=== PATIENT | female | born 1960 | race Caucasian/White ===

== ENCOUNTER 2016-12-03 20:25 | Observation (INO) | payer BC ==
[~2016-12-03] VITALS: Ht 160 cm; Wt 52.3 kg
--- NOTE | ~2016-12-03 | ER ---
ADMIT: 12/03/2016 RM/LOC: ER [facility] MR#: [id number] [id number] [place], [place] [id number] MELISSA WEAVER [address] [place] [address] Emergency Room Report SEX: F AGE: 56 : 1960 DATE: 12/03/2016 HISTORY OF PRESENT ILLNESS: A 56-year-old female with sudden onset of left lateral chest pain, sharply localized to approximate 3 cm diameter lateral aspect of the chest. She was giving her cat a bath when it suddenly occurred, worsened with movement of her torso, deep coughs, and deep breaths. Described it as sharp and stabbing. She has no medical history. Takes no medications. She does not smoke or drink. PHYSICAL EXAMINATION: There is point tenderness in the left lateral aspect of her chest wall. Pain was worsened also by taking a deep breath, having her cough, or if she lifts her torso. She is given Toradol with relief of the pain. Chest x-ray was unremarkable. 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 Daughter then said no, I know it is worse. She is just not telling you. The patient says well maybe it was a tightness now in her chest. There had obviously been some talking amongst the family members, although the patient was in the Emergency Department. The daughter was insistent that she was having a heart attack. Therefore, the nature and the complaint from the patient changed dramatically from a sharp, stabbing localized pain to a tightness across her chest. Therefore, cardiac markers were added to her lab work. Those were normal. A repeat EKG was done because she changed the nature of her pain, that likewise was normal as was the first EKG. However, because she described it as a tightness across her chest now, the patient was admitted to observation for serial enzymes. DIAGNOSIS: Chest pain rule out. Ronen Buitrago MD/ heron JOB #: [id number] CC: Zach Jerome MD, Attending Physician Gerardo Ramirez MD, Family Physician
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
[2016-12-04] MEDS ORDERED: FLEXERIL DPS5 MG PO (14:46)
[2016-12-04] MEDS ORDERED: ASA CHILDREN'S81 MG PO (14:46)
== END 2016-12-04 12:15 | disposition home or self-care (01) ==
LOC: ER 20:25 → 4PCU 23:40
PROVIDERS: ADMIT Internal Medicine
DX: R07.89 Other chest pain (principal); D64.9 Anemia, unspecified; R94.6 Abnormal results of thyroid function studies; Z90.710 Acquired absence of both cervix and uterus; Z98.890 Other specified postprocedural states; Z88.8 Allergy status to other drugs, medicaments and biological substances